=== PATIENT | male | born 1965 | race African-American/Black ===

== ENCOUNTER 2017-01-03 09:23 | Outpatient (CLI) | payer MEDICARE, OTHER ==
[~2017-01-03 09:23] MED LIST: ACETAMINOPHEN-1 EAC2 ORAL; APRISO0.375 GM PO; CARAFATE1 G1 ORAL; DEXILANT60 MG ORAL; DICLOFENAC SODI75 MG ORAL; NEXIUM40 MG ORAL; NORCO 10-325 T1 EACH PO; PREDNISONE1 MG PO; PURINETHOL50 MG ORAL; SOMA350 MG PO; VICODIN ES 7.51 EACH PO; ZOFRAN4 M1 ORAL
[2017-01-03 09:43] VITALS: BP 122/82
[2017-01-03] MEDS ORDERED: DICLOFENAC SODI75 MG ORAL (09:47)
[2017-01-03] MEDS ORDERED: CILOSTAZOL100 MG PO (09:47)
--- NOTE | 2017-01-03 10:55 | GI Progress Note ---
Assessment/Plan Problems: (1) Crohn's disease ICD Codes: K50.90 - Crohn's disease SNOMED: 75413254 (2) Nausea ICD Codes: R11.0 - Nausea SNOMED: 621301338 (3) GERD (gastroesophageal reflux disease) ICD Codes: K21.9 - GERD (gastroesophageal reflux disease) SNOMED: 789254772 (4) Abdominal pain ICD Codes: R10.9 - Abdominal pain SNOMED: 37618253 (5) Crohn's colitis ICD Codes: K50.10 - Crohn's colitis SNOMED: 15764318 Status: stable Status Narrative Seen with Dr. Jon. Assessment/Plan active Crohns flare d/c diclofenac labs drawn >> CBC, CMP, ESR/CRP, Rx Prednisone 40mg Rx 6MP 100mg stool for cdiff collected RTC x 2 weeks Subjective Subjective active abdominal pain x 2 weeks diarrhea nausea bloating was admitted to [facility] [place] x 2 days, left AMA >> received IV abx and CT results unknown. Objective Last 24 Hour Vital Signs Date Time Temp Pulse Resp B/P (MAP) Pulse Ox O2 Delivery O2 Flow Rate FiO2 01/03/17 09:43 98.3 115 20 122/82 95 General Appearance: no apparent distress, alert Cardiovascular: normal rate Respiratory/Chest: normal breath sounds, no respiratory distress Abdominal Exam: tender Extremities: normal range of motion María Pillai N.P. Jan 03, 2017 10:54
[2017-01-03 13:18] LABS: MEAN CORPUSCULAR HEMOGLOBIN 23.6 PG (27.0-31.0); MEAN CORPUSCULAR HGB CONC 30.5 G/DL (32.0-36.0); MEAN CORPUSCULAR VOLUME 77 FL (80-99); MEAN PLATELET VOLUME 5.1 FL (6.5-10.1); PLATELET COUNT 732 K/UL (150-450); RED BLOOD COUNT 5.56 M/UL (4.70-6.10); RED CELL DISTRIBUTION WIDTH 14.2 % (11.6-14.8); WHITE BLOOD COUNT 21.4 K/UL (4.8-10.8)
[2017-01-03 13:53] LABS: BAND NEUTROPHILS % (MANUAL) 2 % (0-8); BASOPHILS % (MANUAL) 0 % (0-2); EOSINOPHILS % (MANUAL) 2 % (0-3); LYMPHOCYTES % (MANUAL) 12 % (20-45); NEUTROPHILS % (MANUAL) 79 % (45-75); PLATELET ESTIMATE INCREASED; PLATELET MORPHOLOGY NORMAL; TOTAL CELLS COUNTED 100
[2017-01-03 13:54] LABS: HYPOCHROMASIA 1+
[2017-01-03 14:19] LABS: ERYTHROCYTE SEDIMENTATION RATE 85 MM/HR (0-20)
[2017-01-03 14:20] LABS: ALANINE AMINOTRANSFERASE 20 U/L (12-78); ALBUMIN/GLOBULIN RATIO 0.6 (1.0-2.7); ANION GAP 12 (5-15); ASPARTATE AMINO TRANSFERASE 15 U/L (15-37); CALCIUM 9.4 MG/DL (8.5-10.1); CARBON DIOXIDE 26 MMOL/L (21-32); CHLORIDE 100 MMOL/L (98-107); CREATININE 0.9 MG/DL (0.55-1.30); CRP QUANT 4.8 mg/dL (0.00-0.90); GLOMERULAR FILTRATION RATE > 60 mL/min (>60); POTASSIUM 4.1 MMOL/L (3.5-5.1); SODIUM 138 MMOL/L (136-145); TOTAL PROTEIN 8.1 G/DL (6.4-8.2)
== END 2017-01-03 10:30 | disposition home or self-care (01) ==
LOC: PAN 09:23
DX: K50.90 Crohn's disease, unspecified, without complications (principal); R11.0 Nausea; K21.9 Gastro-esophageal reflux disease without esophagitis; R10.9 Unspecified abdominal pain; K50.10 Crohn's disease of large intestine without complications
CPT/HCPCS: 36415; 80053; 85007; 85025; 85651; 86140; 87324; G0463; 99211

== ENCOUNTER 2017-01-10 09:43 | Outpatient (CLI) | payer MEDICARE, OTHER ==
[~2017-01-10 09:43] MED LIST changes: +CILOSTAZOL100 MG PO
[2017-01-10 10:05] VITALS: BP 123/85
[2017-01-10] MEDS ORDERED: PREDNISONE20 MG ORAL (10:05)
--- NOTE | 2017-01-10 10:33 | GI Progress Note ---
Assessment/Plan Problems: (1) Crohn's colitis ICD Codes: K50.10 - Crohn's colitis SNOMED: 81433649 (2) Nausea ICD Codes: R11.0 - Nausea SNOMED: 174973937 (3) Abdominal pain ICD Codes: R10.9 - Abdominal pain SNOMED: 73660591 (4) GERD (gastroesophageal reflux disease) ICD Codes: K21.9 - GERD (gastroesophageal reflux disease) SNOMED: 862171678 Status: stable Status Narrative Seen with Dr. Jon. Assessment/Plan labs reviewed with patient cdiff negative taper off of prednisone RTC x 2 months Subjective Subjective abdominal pain subsided diarrhea improved 1-2 day nausea resolved abdominal bloating Objective Last 24 Hour Vital Signs Date Time Temp Pulse Resp B/P (MAP) Pulse Ox O2 Delivery O2 Flow Rate FiO2 01/10/17 10:05 98.2 80 18 123/85 General Appearance: no apparent distress, alert Cardiovascular: normal rate Respiratory/Chest: normal breath sounds, no respiratory distress Abdominal Exam: normal bowel sounds, non tender, soft Extremities: normal range of motion María Pillai N.P. Jan 10, 2017 10:33
== END 2017-01-10 11:43 | disposition home or self-care (01) ==
LOC: PAN 09:43
DX: K50.10 Crohn's disease of large intestine without complications (principal); R11.0 Nausea; R10.9 Unspecified abdominal pain; K21.9 Gastro-esophageal reflux disease without esophagitis
CPT/HCPCS: 99211

== ENCOUNTER 2017-02-27 13:18 | Outpatient (CLI) | payer MEDICARE, OTHER ==
[~2017-02-27 13:18] MED LIST changes: +PREDNISONE20 MG ORAL
[2017-02-27 13:30] VITALS: BP 128/73
[2017-02-27] MEDS ORDERED: PANTOPRAZOLE SO40 MG ORAL (13:34)
--- NOTE | 2017-02-27 14:16 | GI Progress Note ---
Assessment/Plan Problems: (1) Crohn's colitis ICD Codes: K50.10 - Crohn's colitis SNOMED: 05689606 (2) Nausea ICD Codes: R11.0 - Nausea SNOMED: 632359208 (3) Abdominal pain ICD Codes: R10.9 - Abdominal pain SNOMED: 69591296 (4) GERD (gastroesophageal reflux disease) ICD Codes: K21.9 - GERD (gastroesophageal reflux disease) SNOMED: 511498905 (5) Crohn's disease ICD Codes: K50.90 - Crohn's disease SNOMED: 79019898 Status: stable Status Narrative Seen with Dr. Jon. Assessment/Plan cdiff negative refill rx >> 6MP, protonix colonoscopy scheduled for 03/31/16 - CLD & (Nulytely/Suprep/Movi-Prep) prep instructions given and acknowledged by patient. - NPO @ AR day prior procedure explained. Subjective Subjective GERD, on protonix 40mg Crohns fistula draining Objective Last 24 Hour Vital Signs Date Time Temp Pulse Resp B/P (MAP) Pulse Ox O2 Delivery O2 Flow Rate FiO2 02/27/17 13:30 98.6 93 16 128/73 Weight (Pounds): 213 General Appearance: WD/WN, no apparent distress, alert Cardiovascular: normal rate Respiratory/Chest: normal breath sounds, no respiratory distress Abdominal Exam: normal bowel sounds, non tender, soft Extremities: normal range of motion, non-tender María Pillai NIndu Feb 27, 2017 14:16
== END 2017-02-27 13:55 | disposition home or self-care (01) ==
LOC: PAN 13:18
DX: K50.10 Crohn's disease of large intestine without complications (principal); R11.0 Nausea; R10.9 Unspecified abdominal pain; K21.9 Gastro-esophageal reflux disease without esophagitis
CPT/HCPCS: 99212

== ENCOUNTER 2017-03-31 07:13 | Day surgery (SDC) | payer MEDICARE, MEDICAID ==
[2017-03-31] VITALS (7 sets, daily range): BP systolic 121–138; BP diastolic 63–87
[~2017-03-31] VITALS: Ht 170.2 cm; Wt 95.3 kg
[~2017-03-31 07:13] MED LIST changes: +PANTOPRAZOLE SO40 MG ORAL
[2017-03-31] MEDS ORDERED: Propofol 200mg/20ml IV ONE (07:14)
[2017-03-31] MEDS ORDERED: LR 1000ml ONE (07:14)
[2017-03-31] MEDS ORDERED: fentaNYL 100 mcg/2 mL IV ONE (07:14)
[2017-03-31] MEDS ORDERED: Midazolam 2mg/2ml Inj ONE (07:14)
[2017-03-31 08:12] LABS: BASOPHILS % (AUTO) 1.2 % (0.0-2.0); EOSINOPHILS % (AUTO) 4.2 % (0.0-3.0); HEMATOCRIT 45.2 % (42.0-52.0); HEMOGLOBIN 14.2 G/DL (14.2-18.0); MEAN CORPUSCULAR VOLUME 83 FL (80-99); MONOCYTES % (AUTO) 5.1 % (1.0-10.0); NEUTROPHILS % (AUTO) 71.4 % (45.0-75.0); PLATELET COUNT 635 K/UL (150-450); RED BLOOD COUNT 5.44 M/UL (4.70-6.10); RED CELL DISTRIBUTION WIDTH 15.6 % (11.6-14.8)
[2017-03-31 08:41] LABS: ALANINE AMINOTRANSFERASE 39 U/L (12-78); ALBUMIN 3.4 G/DL (3.4-5.0); ALBUMIN/GLOBULIN RATIO 0.7 (1.0-2.7); ALKALINE PHOSPHATASE 102 U/L (46-116); ANION GAP 12 mmol/L (5-15); ASPARTATE AMINO TRANSFERASE 27 U/L (15-37); BILIRUBIN,TOTAL 0.6 MG/DL (0.2-1.0); BLOOD UREA NITROGEN 10 mg/dL (7-18); CALCIUM 8.3 MG/DL (8.5-10.1); CARBON DIOXIDE 23 MMOL/L (21-32); CHLORIDE 104 MMOL/L (98-107); CREATININE 0.8 MG/DL (0.55-1.30); POTASSIUM 4.2 MMOL/L (3.5-5.1); SODIUM 139 MMOL/L (136-145)
--- NOTE | 2017-03-31 09:05 | Pre-Procedure Note/Attestation ---
Pre-Procedure Note/Attestation Complete Prior to Procedure Planned Procedure: not applicable Procedure Narrative: crohns dz Indications for Procedure Pre-Operative Diagnosis: colonoscopy Attestation I attest that I discussed the nature of the procedure; its benefits; risks and complications; and alternatives (and the risks and benefits of such alternatives ), prior to the procedure, with the patient (or the patient's legal representative phlebotomy services). I attest that, if there was a reasonable possibility of needing a blood transfusion, the patient (or the patient's legal representative phlebotomy services) was given the [facility] Services standardized written summary, pursuant to the [place] Blood Safety Act ([place] Health and Safety Code # 1645, as amended). I attest that I re-evaluated the patient just prior to the surgery and that there has been no change in the patient's H&P, except as documented below: MOOKIE BERGMAN Mar 31, 2017 09:05
--- NOTE | 2017-03-31 09:06 | Short Stay Surgery H&P ---
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 who was admitted on for Crohns Disease Patient History Allergies: Coded Allergies: IBUPROFEN (Verified Allergy, 02/10/12) STOMACH PAIN PAST MEDICAL HISTORY: (1) Crohn's disease (2) GERD (gastroesophageal reflux disease) (3) Abdominal pain (4) Nausea (5) Crohn's colitis Past Surgeries: Social History: Medication History Scheduled Cilostazol* (Cilostazol*), 100 MG PO TWICE A DAY, (Reported) Mercaptopurine* (Purinethol*), 100 MG ORAL DAILY, (Reported) Pantoprazole* (Pantoprazole*), 40 MG ORAL HS, (Reported) Discontinued Medications Prednisone* (Prednisone*), 10 MG ORAL DAILY, (Reported) Discontinued Reason: Pt stopped taking med Review of Systems Cardiovascular: Reports: no symptoms Respiratory: Reports: no symptoms Skeletal: Reports: no symptoms Gastrointestinal: Reports: no symptoms Genitourinary: Reports: no symptoms Neurologic: Reports: no symptoms Endocrine: Reports: no symptoms Hematologic: Reports: no symptoms Physical Exam Vital Signs Last Vital Signs Date Time Temp Pulse Resp B/P (MAP) Pulse Ox O2 Delivery O2 Flow Rate FiO2 03/31/17 07:33 98.6 85 18 136/85 95 Room Air Labs Laboratory Tests Test 03/31/17 07:40 White Blood Count 14.0 K/UL (4.8-10.8) H Red Blood Count 5.44 M/UL (4.70-6.10) Hemoglobin 14.2 G/DL (14.2-18.0) Hematocrit 45.2 % (42.0-52.0) Mean Corpuscular Volume 83 FL (80-99) Mean Corpuscular Hemoglobin 26.1 PG (27.0-31.0) L Mean Corpuscular Hemoglobin Concent 31.4 G/DL (32.0-36.0) L Red Cell Distribution Width 15.6 % (11.6-14.8) H Platelet Count 635 K/UL (150-450) H Mean Platelet Volume 5.9 FL (6.5-10.1) L Neutrophils (%) (Auto) 71.4 % (45.0-75.0) Lymphocytes (%) (Auto) 18.0 % (20.0-45.0) L Monocytes (%) (Auto) 5.1 % (1.0-10.0) Eosinophils (%) (Auto) 4.2 % (0.0-3.0) H Basophils (%) (Auto) 1.2 % (0.0-2.0) Erythrocyte Sedimentation Rate Pending Sodium Level 139 MMOL/L (136-145) Potassium Level 4.2 MMOL/L (3.5-5.1) Chloride Level 104 MMOL/L (98-107) Carbon Dioxide Level 23 MMOL/L (21-32) Anion Gap 12 mmol/L (5-15) Blood Urea Nitrogen 10 mg/dL (7-18) Creatinine 0.8 MG/DL (0.55-1.30) Estimat Glomerular Filtration Rate > 60 mL/min (>60) Glucose Level 81 MG/DL (74-106) Calcium Level 8.3 MG/DL (8.5-10.1) L Total Bilirubin 0.6 MG/DL (0.2-1.0) Aspartate Amino Transf (AST/SGOT) 27 U/L (15-37) Alanine Aminotransferase (ALT/SGPT) 39 U/L (12-78) Alkaline Phosphatase 102 U/L (46-116) C-Reactive Protein, Quantitative 0.6 mg/dL (0.00-0.90) Total Protein 8.0 G/DL (6.4-8.2) Albumin 3.4 G/DL (3.4-5.0) Globulin 4.6 g/dL Albumin/Globulin Ratio 0.7 (1.0-2.7) L Skin: normal HENT: normal Heart: normal Lungs: normal Abdomen: normal Extremities: normal Plan Plan of Care colonoscopy Final Diagnosis: Attestation Are the patient's medical conditions optimized for surgery? Attestation Response: yes MOOKIE BERGMAN Mar 31, 2017 09:06
[2017-03-31] MEDS ORDERED: fentaNYL 100 mcg/2 mL IV PRN (09:15)
[2017-03-31] MEDS ORDERED: Metoclopramide 10mg/2ml Inj IVP PRN (09:15)
[2017-03-31] MEDS ORDERED: LR 1000ml 1,000 ML IVLG SCH (09:15)
--- NOTE | 2017-03-31 09:19 | Anethesia Preoperative Eval ---
Anesthesia Pre-op PMH/ROS General Date of Evaluation: Mar 31, 2017 Time of Evaluation: 09:01 Anesthesiologist: Lorena ASA Score: ASA 2 Mallampati Score Class I : Soft palate, uvula, fauces, pillars visible Class II: Soft palate, uvula, fauces visible Class III: Soft palate, base of uvula visible Class IV: Only hard plate visible Mallampati Classification: Class II Surgeon: Danay Diagnosis: Crohn's Surgical Procedure: Colonoscopy Anesthesia History: none Family History: no anesthesia problems Allergies: Coded Allergies: IBUPROFEN (Verified Allergy, 02/10/12) STOMACH PAIN Medications: see eMAR Anesthesia Pre-op Phys. Exam Physician Exam Last Vital Signs Date Time Temp Pulse Resp B/P (MAP) Pulse Ox O2 Delivery O2 Flow Rate FiO2 03/31/17 07:33 98.6 85 18 136/85 95 Room Air Constitutional: NAD Neurologic: CN 2-12 intact Cardiovascular: RRR Respiratory: CTA Gastrointestinal: S/NT/ND Airway Exam Mallampati Score: Class II MO: full ROM: full Teeth: intact Anesthesia Pre-op A/P Labs Hematology Test 03/31/17 07:40 White Blood Count 14.0 K/UL (4.8-10.8) H Red Blood Count 5.44 M/UL (4.70-6.10) Hemoglobin 14.2 G/DL (14.2-18.0) Hematocrit 45.2 % (42.0-52.0) Mean Corpuscular Volume 83 FL (80-99) Mean Corpuscular Hemoglobin 26.1 PG (27.0-31.0) L Mean Corpuscular Hemoglobin Concent 31.4 G/DL (32.0-36.0) L Red Cell Distribution Width 15.6 % (11.6-14.8) H Platelet Count 635 K/UL (150-450) H Mean Platelet Volume 5.9 FL (6.5-10.1) L Neutrophils (%) (Auto) 71.4 % (45.0-75.0) Lymphocytes (%) (Auto) 18.0 % (20.0-45.0) L Monocytes (%) (Auto) 5.1 % (1.0-10.0) Eosinophils (%) (Auto) 4.2 % (0.0-3.0) H Basophils (%) (Auto) 1.2 % (0.0-2.0) Erythrocyte Sedimentation Rate Pending Chemistry Test 03/31/17 07:40 Sodium Level 139 MMOL/L (136-145) Potassium Level 4.2 MMOL/L (3.5-5.1) Chloride Level 104 MMOL/L (98-107) Carbon Dioxide Level 23 MMOL/L (21-32) Anion Gap 12 mmol/L (5-15) Blood Urea Nitrogen 10 mg/dL (7-18) Creatinine 0.8 MG/DL (0.55-1.30) Estimat Glomerular Filtration Rate > 60 mL/min (>60) Glucose Level 81 MG/DL (74-106) Calcium Level 8.3 MG/DL (8.5-10.1) L Total Bilirubin 0.6 MG/DL (0.2-1.0) Aspartate Amino Transf (AST/SGOT) 27 U/L (15-37) Alanine Aminotransferase (ALT/SGPT) 39 U/L (12-78) Alkaline Phosphatase 102 U/L (46-116) C-Reactive Protein, Quantitative 0.6 mg/dL (0.00-0.90) Total Protein 8.0 G/DL (6.4-8.2) Albumin 3.4 G/DL (3.4-5.0) Globulin 4.6 g/dL Albumin/Globulin Ratio 0.7 (1.0-2.7) L Risk Assessment & Plan Plan: MAC Status Change Before Surgery: No Pre-Antibiotics Given Within 1 Hr of Incision: No Bryson Carrillo M.D. Mar 31, 2017 09:19
--- NOTE | 2017-03-31 09:22 | Immediate Post-Op Evaluation ---
Immediate Post-Op Evalulation Immediate Post-Op Evalulation Procedure: Colonoscopy Date of Evaluation: Mar 31, 2017 Time of Evaluation: 09:46 IV Fluids: 300 Blood Products: 0 Estimated Blood Loss: 0 Urinary Output: 0 Blood Pressure Systolic: 129 Blood Pressure Diastolic: 30 Pulse Rate: 69 Respiratory Rate: 16 O2 Sat by Pulse Oximetry: 98 Temperature (Fahrenheit): 98 Pain Score (1-10): 0 Nausea: No Vomiting: No Patient Status: awake, patent Hydration Status: adequate Given Within 1 Hr of Incision: No Bryson Carrillo M.D. Mar 31, 2017 09:22
--- NOTE | 2017-03-31 09:34 | Endoscopy Procedure Note ---
Endoscopy Procedure Note Indication for Procedure: colitis Procedures Performed: colonoscopy Operative Findings/Diagnosis: same Specimen: yes Pt Tolerated Procedure Well: Yes Estimated Blood Loss: none Anesthesiologist: see chart Anesthesia: MAC Implant(s) used?: No 50 yrs or older w/o bx or poly: No 10yrs. F/U not recommended: Yes If not recommended, why?: Above average risk 10 yrs. F/U needed: Yes 18 years or older w/prev. colo: Yes <3yrs. since last colonoscopy: No MOOKIE BERGMAN Mar 31, 2017 09:34
--- NOTE | 2017-03-31 18:00 | Procedure Note ---
DATE OF PROCEDURE: 03/31/2017 SURGEON: Daniel Jon M.D. PROCEDURE: Colonoscopy with biopsy. ANESTHESIA: Per anesthesiologist. Please see anesthesia sheet. INSTRUMENT: Olympus adult flexible colonoscope. INDICATION: History of colitis. The procedure, risks, benefits, and possible consequences, including hemorrhage, aspiration, perforation and infection, and alternative treatments, were explained to the patient/legal guardian by Dr. Daniel Jon and the patient/legal guardian understood and accepted these risks. DESCRIPTION OF PROCEDURE: After informed consent was obtained and the patient was adequately sedated, first rectal exam was performed, which was positive for internal hemorrhoids. Then, the scope was advanced from the rectum into the cecum and then subsequently into terminal ileum. Quality of prep was very good. The patient had overall normal terminal ileum looking area. The ileocecal valve was disrupted and so it was not difficult to get into the terminal ileum. There was a one middle ulceration in the TI, which was biopsied. Also, two random biopsies from the TI were obtained for evaluation of inflammation and colitis or backwash colitis. The rest of the colonic examination looked abnormal. There was evidence of inflammation, numerous pseudopolyps throughout the colon. We biopsied the cecum, ascending colon, transverse colon, descending colon, sigmoid and rectum. In the rectum, most part of rectum was spared, but right above the dentate line, there was evidence of inflammation and pseudopolyp formation. SUMMARY OF FINDINGS: Diffuse colitis extending all the way to the terminal ileum, suspicious most likely for, looks like the pattern to be ulcerative colitis, given the diffuse colonic involvement than being a patchy. Plan to follow biopsy results. We are going to order 6-MP levels or metabolites levels to see if the patient is taking his 6-MP, and if he is, if the levels were adequate because if that is the case, the patient most probably will need to be taken off the 6-MP and started on immunomodulator including Humira or Remicade depending on what insurance covers. Daniel Jon M.D. DR: PALMIRA JOB#: [id number] CC:
--- NOTE | 2017-05-23 14:53 | Cardiology Report ---
APPROVED REPORT EKG Measurement Heart [id number] Normal sinus rhythm Right superior axis deviation Inferior infarct, age undetermined Anterior infarct, age undetermined Abnormal ECG
== END 2017-03-31 10:50 | disposition home or self-care (01) ==
LOC: GAS 07:13
DX: K52.9 Noninfective gastroenteritis and colitis, unspecified (principal); K50.90 Crohn's disease, unspecified, without complications; K21.9 Gastro-esophageal reflux disease without esophagitis; Z79.52 Long term (current) use of systemic steroids; Z88.6 Allergy status to analgesic agent
CPT/HCPCS: 36415; 45380; 80053; 85025; 85651; 86140; 93005; J2250; J2704; J3010; J7120; 94003; 94150

== ENCOUNTER 2017-06-08 13:56 | Outpatient (CLI) | payer MEDICARE, OTHER ==
--- NOTE | 2017-06-08 17:16 | GI Progress Note ---
Assessment/Plan Problems: (1) Crohn's colitis ICD Codes: K50.10 - Crohn's colitis SNOMED: 85183761 (2) Nausea ICD Codes: R11.0 - Nausea SNOMED: 989245597 (3) Abdominal pain ICD Codes: R10.9 - Abdominal pain SNOMED: 99542150 (4) GERD (gastroesophageal reflux disease) ICD Codes: K21.9 - GERD (gastroesophageal reflux disease) SNOMED: 182404255 (5) Crohn's disease ICD Codes: K50.90 - Crohn's disease SNOMED: 56411405 Status: stable Status Narrative Seen with Dr. Jon. Assessment/Plan s/p colonoscopy SUMMARY OF FINDINGS reviewed with patient: Diffuse colitis extending all the way to the terminal ileum, suspicious most likely for, looks like the pattern to be ulcerative colitis, given the diffuse colonic involvement than being a patchy. Recommendations: Rx 6 MP 100mg PO daily RTC x 3 months Subjective Subjective abdominal cramping constipation Objective T 98.4 BP 121/77 P 90 95 RA General Appearance: WD/WN, no apparent distress, alert Cardiovascular: normal rate Respiratory/Chest: normal breath sounds, no respiratory distress Abdominal Exam: normal bowel sounds, non tender, soft Extremities: normal range of motion, non-tender María Pillai N.P. Jun 08, 2017 17:16
== END 2017-06-08 14:29 | disposition home or self-care (01) ==
LOC: PAN 13:56
DX: K50.10 Crohn's disease of large intestine without complications (principal); R11.0 Nausea; R10.9 Unspecified abdominal pain; K21.9 Gastro-esophageal reflux disease without esophagitis; K50.90 Crohn's disease, unspecified, without complications
CPT/HCPCS: 99211

== ENCOUNTER 2018-04-04 13:12 | Outpatient (CLI) | payer MEDICARE, OTHER ==
[2018-04-03 13:00] VITALS: BP 129/90
--- NOTE | 2018-04-04 15:41 | GI Progress Note ---
Assessment/Plan Problems: (1) C. difficile colitis ICD Codes: A04.72 - Enterocolitis due to Clostridium difficile, not specified as recurrent SNOMED: 251782540 (2) Crohn's colitis ICD Codes: K50.10 - Crohn's colitis SNOMED: 08448358 (3) Nausea ICD Codes: R11.0 - Nausea SNOMED: 182414447 (4) Abdominal pain ICD Codes: R10.9 - Abdominal pain SNOMED: 91893034 (5) GERD (gastroesophageal reflux disease) ICD Codes: K21.9 - GERD (gastroesophageal reflux disease) SNOMED: 728246659 (6) Crohn's disease ICD Codes: K50.90 - Crohn's disease SNOMED: 46753644 Status: stable Status Narrative Seen with Dr. Jon Assessment/Plan We will collect stool to rule out C. difficile, infectious colitis Prescription given, Flagyl 500 mg Return to clinic post stool study The patient was seen and examined at bedside and all new and available data was reviewed in the patients chart. I agree with the above findings, impression and plan. (Patient seen earlier today. Signature stamp does not reflect patient encounter time.). - Daniel Jon MD Subjective Subjective Complaint of diarrhea, 5-6 times daily Has history of ulcerative colitis, is on 6-MP Complains of weight loss greater than 30 pounds within 1 year Objective Temperature 98.6 Blood pressure 129/90 Pulse is 98 90% room air Weight 187.6 pounds General Appearance: WD/WN, no apparent distress, alert Cardiovascular: normal rate Respiratory/Chest: normal breath sounds, no respiratory distress Abdominal Exam: normal bowel sounds, non tender, soft Extremities: normal range of motion, non-tender Paras Pillai NP Apr 04, 2018 15:41
== END 2018-04-05 13:42 | disposition home or self-care (01) ==
LOC: PAN 13:12
DX: A04.72 Enterocolitis due to Clostridium difficile, not specified as recurrent (principal); K50.10 Crohn's disease of large intestine without complications; R11.0 Nausea; R10.9 Unspecified abdominal pain; K21.9 Gastro-esophageal reflux disease without esophagitis; K50.90 Crohn's disease, unspecified, without complications

== ENCOUNTER 2018-04-05 14:40 | Outpatient (CLI) | payer MEDICARE, OTHER | END 2018-04-05 15:10 | disposition home or self-care (01) | LOC: PAN 14:40 | DX: R19.7 Diarrhea, unspecified (principal); K50.10 Crohn's disease of large intestine without complications; A04.72 Enterocolitis due to Clostridium difficile, not specified as recurrent; R11.0 Nausea; K21.9 Gastro-esophageal reflux disease without esophagitis | CPT/HCPCS: 87324 ==

== ENCOUNTER 2018-04-09 13:45 | Outpatient (CLI) | payer MEDICARE, MEDICAID ==
[2018-04-09 14:30] VITALS: BP 118/66
--- NOTE | 2018-04-10 10:54 | GI Progress Note ---
Assessment/Plan Problems: (1) Crohn's colitis ICD Codes: K50.10 - Crohn's colitis SNOMED: 54669486 (2) C. difficile colitis ICD Codes: A04.72 - Enterocolitis due to Clostridium difficile, not specified as recurrent SNOMED: 633895737 (3) Nausea ICD Codes: R11.0 - Nausea SNOMED: 586745056 (4) Abdominal pain ICD Codes: R10.9 - Abdominal pain SNOMED: 54839435 (5) GERD (gastroesophageal reflux disease) ICD Codes: K21.9 - GERD (gastroesophageal reflux disease) SNOMED: 727774703 (6) Crohn's disease ICD Codes: K50.90 - Crohn's disease SNOMED: 06999099 Status: stable Status Narrative Seen with Dr. Jon. Assessment/Plan Obtain 6-MP levels Prednisone taper Return to clinic in 1 month The patient was seen and examined at bedside and all new and available data was reviewed in the patients chart. I agree with the above findings, impression and plan. (Patient seen earlier today. Signature stamp does not reflect patient encounter time.). - Daniel Jon MD Subjective Subjective Patient states that his diarrhea is a little better Has a 7-8 bowel movements per day Describes as liquid to soft Denies any melena or hematochezia Appetite has increased Objective Temperature 98.8 Blood pressure 118/66 Pulse 81 94% room air 190 pounds General Appearance: WD/WN, no apparent distress, alert Cardiovascular: normal rate Respiratory/Chest: normal breath sounds, no respiratory distress Abdominal Exam: normal bowel sounds, non tender, soft Extremities: normal range of motion, non-tender Paras Pillai NP Apr 10, 2018 10:54
== END 2018-04-09 14:15 | disposition home or self-care (01) ==
LOC: PAN 13:45
DX: K50.10 Crohn's disease of large intestine without complications (principal); A04.72 Enterocolitis due to Clostridium difficile, not specified as recurrent; R11.0 Nausea; R10.9 Unspecified abdominal pain; K21.9 Gastro-esophageal reflux disease without esophagitis
CPT/HCPCS: 99213

== ENCOUNTER 2018-07-18 13:23 | Outpatient (CLI) | payer MEDICARE, MEDICAID ==
--- NOTE | 2018-07-18 14:31 | General Progress Note ---
Assessment/Plan Problem List: (1) jujaneenmague (2) C. difficile colitis ICD Codes: A04.72 - Enterocolitis due to Clostridium difficile, not specified as recurrent SNOMED: 865768270 (3) Crohn's colitis ICD Codes: K50.10 - Crohn's colitis SNOMED: 53128821 (4) GERD (gastroesophageal reflux disease) ICD Codes: K21.9 - GERD (gastroesophageal reflux disease) SNOMED: 072189613 Assessment/Plan: plan check labs MRI/MRCP cont 6-MP plan colonoscopy next visit Subjective ROS Limited/Unobtainable: Yes Allergies: Coded Allergies: IBUPROFEN (Verified Allergy, 02/10/12) STOMACH PAIN Objective General Appearance: alert EENT: normal ENT inspection Neck: supple Cardiovascular: normal rate Respiratory/Chest: lungs clear Abdomen: normal bowel sounds, non tender, soft Extremities: non-tender Daniel Jon MD Jul 18, 2018 14:31
[2018-07-18 15:50] VITALS: BP 134/88
== END 2018-07-18 15:23 | disposition home or self-care (01) ==
LOC: PAN 13:23
DX: K50.10 Crohn's disease of large intestine without complications (principal); K21.9 Gastro-esophageal reflux disease without esophagitis; A04.72 Enterocolitis due to Clostridium difficile, not specified as recurrent; R17 Unspecified jaundice; Z88.6 Allergy status to analgesic agent
CPT/HCPCS: 99213

== ENCOUNTER 2018-07-26 09:47 | Outpatient (CLI) | payer MEDICARE, MEDICAID ==
--- NOTE | 2018-07-26 13:23 | Diagnostic Imaging Report ---
Indication: Jaundice. Abdominal pain. History of Crohn's Technique: MRI of the abdomen was performed in a 1.5 Lisa magnet. Pulse sequences obtained include coronal and axial T2 single shot fast spin echo breathhold and respiratory gated coronal T2 3-D M.R.C.P.; this data set was displayed in different projections or MIPs. In addition, multiple coronal oblique thin T2 weighted, fat saturated SE sequences obtained through the CBD. Comparison: None Findings: The exam is significantly limited by motion. The biliary ducts do not appear dilated. The gallbladder is unremarkable. There is no evidence of a gallstone and no stones are seen in the CBD. The main pancreatic duct is nondilated. No gross abnormalities of the pancreas identified. There are small cysts within both kidneys. There is no free fluid. There is no adrenal mass. IMPRESSION: Negative MRCP. Unremarkable gallbladder. Limited evaluation due to breathing motion
== END 2018-07-26 11:47 | disposition home or self-care (01) ==
LOC: MRI 09:47
DX: R17 Unspecified jaundice (principal); R10.9 Unspecified abdominal pain; K50.90 Crohn's disease, unspecified, without complications; N20.0 Calculus of kidney
CPT/HCPCS: 74183; A9585